=== PATIENT | female | born 2000 | race Caucasian/White ===

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

== ENCOUNTER → 2021-01-18 14:12 | Outpatient (BNVA) | payer OTHER, SELFPAY | PROVIDERS: PCP Internal Medicine; Visit Provider Nurse Practitioner | DX: Z20.822 Contact with and (suspected) exposure to COVID-19 (principal) | CPT/HCPCS: 87635 ==

== ENCOUNTER 2021-04-22 14:07 | Emergency (ER) | payer SELFPAY ==
[2021-04-22 14:17] VITALS: BP 137/86; PULSE 70; RESP 18; TEMP 36.7; O2SAT 96; BMI 33.3
--- NOTE | 2021-04-22 14:26 | W.ED.FEMALGU ---
HPI - Female Genitourinary General: Chief complaint: Urogenital-Female Stated complaint: States possible UTI, cramping Time Seen by Provider: 04/22/21 14:22 History of Present Illness: HPI Narrative: Patient is a 20-year-old female who comes to the ED with UTI symptoms. Patient says that she has had some dysuria now for about close to 2 weeks. She states she has been taking some lhbi-[id number]-[id number] cranberry tablets she reports having a little bit of blood in the urine today as well. Denies any fever, chills, nausea/vomiting, abdominal pain. Associated symptoms: Deny abdominal pain, headache(s) or nausea Review of Systems Const: Denies: fever(s), chills or fatigue Eyes: Denies: change in vision or eye discomfort ENMT: Denies: throat pain, odynophagia, nasal discharge or nasal congestion Card: Denies: chest pain, palpitations, edema, swelling of feet/ankles, dyspnea on exertion or orthopnea Resp: Denies: dyspnea, productive cough or non-productive cough GI: Denies: abdominal pain, nausea, vomiting, diarrhea, constipation or hematochezia : Reports: dysuria and hematuria; Denies: flank pain Musc: Denies: neck pain, back pain or extremity swelling Skin/Breast: Denies: rash or new lesions Neuro: Denies: headache(s), numbness in extremities or weakness in extremities PFSH ED PFSH: Social History Smoking and tobacco status: never smoked Physical Exam Const: COMMON NORMALS: no acute distress, patient oriented x3, healthy appearing and alert GENERAL APPEARANCE: cooperative and comfortable HENMT: COMMON NORMALS: normocephalic HEAD & SCALP: normocephalic MOUTH: Normal oral and palatal mucosa present THROAT: posterior oropharynx normal and uvula midline Neck/C-Spine: COMMON NORMALS: supple GENERAL: Yes normal visual inspection Resp: COMMON NORMALS: normal respiratory effort, No retractions, No use of accessory muscles and clear to auscultation bilaterally AUSCULTATION: clear to auscultation bilaterally Cardio: COMMON NORMALS: regular rate, regular rhythm, S1 normal heart sound present, S2 normal heart sound present, No gallops present (Cardio), No clicks present (Cardio), No murmurs present (Cardio) and Peripheral pulses 2+ throughout RATE: regular rate RHYTHM: regular rhythm HEART SOUNDS: S1 normal heart sound present and S2 normal heart sound present PERIPHERAL PULSES: Peripheral pulses 2+ throughout GI: COMMON NORMALS: Normal to inspection, nondistended, normoactive bowel sounds present, Soft to palpation, non-tender and no masses PALPATION: Yes Soft to palpation : COMMON NORMALS: Yes no CVA tenderness BLADDER/KIDNEY EXAM: Yes no CVA tenderness Back/Pelvis: COMMON NORMALS: no CVA tenderness Extremity: COMMON NORMALS: normal to inspection Neuro: COMMON NORMALS: patient oriented x3 and moves all extremities SENSORIUM/ORIENTATION: Yes alert Skin: GENERAL SKIN EXAM: dry skin Course Vital Signs: Vital signs: Vital Signs Temperature 98.1 F 04/22/21 14:17 Pulse Rate 79 04/22/21 15:29 Respiratory Rate 16 04/22/21 15:29 Blood Pressure 124/68 04/22/21 15:29 Pulse Oximetry 97 04/22/21 15:29 MDM - Female MDM Narrative: Medical decision making narrative: Patient is a 20-year-old female comes to the ED with UTI symptoms for about 2 weeks. She has been taking lxlh-jsm-[id number] cranberry pills but symptoms have not resolved. Patient's exam was benign and she appeared nontoxic and in no acute distress or pain. UA was positive for bacteria and hCG in the urine was negative. Patient's UA was not a strong indicator for UTI but due to patient's 2 weeks of UTI symptoms I discharged home with a prescription for Bactrim. Return to ED precautions given. She is told to follow-up with her PCP in 7 to 10 days for reevaluation. Lab Data: Attestation: I reviewed the patient's lab results. Labs: Lab Results 04/22/21 04/22/21 Range/Units 14:20 14:20 HCG, Qual Negative (Negative) Urine Color Yellow (Yellow) Urine Appearance Hazy A (CLEAR) Urine pH 7 (5-7) Ur Specific Gravit y 1.015 (1.005-1.030) Urine Protein Neg (Negative) Urine Glucose (UA) Norm (Normal) Urine Ketones Negative (Negative) Urine Blood Neg (Negative) Urine Nitrate Negative (Negative) Urine Bilirubin Neg (Negative) Urine Urobilinogen Norm (Negative) mg/dL Ur Leukocyte Roz ase Negative (Negative) Urine RBC None (0-2) /hpf Urine WBC Rare (0-5) /hpf Ur Squamous Epith Cells 0-4 H (0-5) /hpf Amorphous Sediment Not Reportable Urine Bacteria 2+ H (NONE) /hpf Discharge Plan Discharge Patient Disposition: Home Clinical Impression: UTI symptoms Condition: Stable Prescriptions: New Bactrim DS 800-160 mg tablet 1 tab PO BID 5 Days Qty: 10 RF: 0 No Action albuterol sulfate [ProAir HFA] 90 mcg/actuation HFA aerosol inhaler 2 puff INHALATION Q6H PRN (Reason: shortness of breath or wheezing) Qty: 8.5 RF: 0 Excedrin Migraine 250-250-65 mg Tablet 2 tab PO PRN RF: 0 melatonin 10 mg Tablet 10 mg PO BEDTIME PRN (Reason: Sleep) RF: 0 Discharge Orders: Discharge ED (Routine); Ordered 04/22/21 Ordered By: Jason Butcher Discharge Diet: Regular Discharge Activity: Resume usual activity Patient Instructions: Urinary Tract Infection in Women (ED) Activity Restrictions/Additional Instructions: Follow-up with medical provider as directed in 7 days for reevaluation. Take medications as prescribed. Return to the ER or your medical provider if condition worsens. Please read and understand discharge instructions. Thank you for choosing [facility] for your healthcare needs today. Please realize this is an emergency room and that we are providing you with a medical screening exam and this may not be complete and all inclusive of all the testing and or work up that you may need to determine your ailment or severity of your illness. It is very important that you follow up as instructed or that you return to the Emergency Department should you have concerns or if your condition changes or worsens in any way. Coding Level of Care Code ED Seo Engineer for Rickie Fwhesham Exam Comprehensive
[2021-04-22 14:40] LABS: HCG Qualitative Urine. Negative (Negative)
[2021-04-22 14:52] LABS: Protein Urine Neg (Negative); Specific Gravity, Urine 1.015 (1.005-1.030); Urine Appearance Hazy (CLEAR); Urine Color Yellow (Yellow); pH Urine 7 (5-7)
[2021-04-22 14:53] LABS: Add Urine Culture? No; Bacteria Urine 2+ /hpf; Bilirubin Urine Neg (Negative); Blood Urine Neg (Negative); Glucose Urine UA Norm (Normal); Ketones Urine Negative (Negative); Leukocyte Esterase Urine Negative (Negative); Nitrate Urine Negative (Negative); Squamous Epithelial Cell Urine 0-4 /hpf (0-5); Urobilinogen Urine Norm (Negative); WBC Urine RARE /hpf (0-5)
[2021-04-22 15:29] VITALS: BP 124/68; PULSE 79; RESP 16; O2SAT 97
== END 2021-04-22 15:30 | disposition home or self-care (01) ==
PROVIDERS: Emergency Provider Physician Assistant
DX: R30.0 Dysuria (principal)
CPT/HCPCS: 81001; 81025; 99282

== ENCOUNTER → 2021-12-19 10:26 | Outpatient (BNVA) | payer SELFPAY | PROVIDERS: Visit Provider Family Medicine Adult Medicine | DX: N20.0 Calculus of kidney (principal); R39.9 Unspecified symptoms and signs involving the genitourinary system; R31.9 Hematuria, unspecified | CPT/HCPCS: 81000 ==

== ENCOUNTER → 2022-06-07 15:14 | Outpatient (BNVA) | payer SELFPAY | PROVIDERS: Visit Provider Family Medicine | DX: Z20.2 Contact with and (suspected) exposure to infections with a predominantly sexual mode of transmission (principal); A74.9 Chlamydial infection, unspecified | CPT/HCPCS: 87491; 87591; 87661 ==

== ENCOUNTER → 2022-07-27 12:48 | Outpatient (BNVA) | payer SELFPAY | PROVIDERS: Visit Provider Registered Nurse Neonatal Intensive Care | DX: J02.9 Acute pharyngitis, unspecified (principal); H66.91 Otitis media, unspecified, right ear; H66.001 Acute suppurative otitis media without spontaneous rupture of ear drum, right ear | CPT/HCPCS: 87071; 87880 ==

== ENCOUNTER 2022-11-20 00:10 | Emergency (ER) | payer SELFPAY ==
[2022-11-20 00:15] VITALS: BP 133/69; PULSE 94; RESP 20; TEMP 36.8; O2SAT 98; BMI 34.9
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
--- NOTE | 2022-11-20 00:21 | XRR_ITS ---
PROCEDURE INFORMATION: Exam: XR Chest Exam date and time: 11/20/2022 12:26 AM Age: 22 years old Clinical indication: Cough and shortness of breath; Patient HX: C/O cough, congestion, and SOB. Diagnosed with bronchitis last week. TECHNIQUE: Imaging protocol: Radiologic exam of the chest. Views: 1 view. COMPARISON: CR XR thoracic spine 3V* [id number] 10/11/2017 12:20 AM FINDINGS: Lungs: There may be minimal left lung base atelectasis. No sizable or definite consolidation. Right lung clear. Pleural spaces: Unremarkable. No pleural effusion. No pneumothorax. Heart/Mediastinum: Unremarkable. No cardiomegaly. Bones/joints: Unremarkable. XR/XR chest 1V portable [id number] IMPRESSION: 1. Minimal left lung base atelectasis or minimal airspace disease. Advise correlation. 2. Otherwise negative.
[2022-11-20] MEDS: dexamethasone 10 mg/mL INJ IM (01:01)
[2022-11-20] MEDS: azithromycin 250 mg Tablet 500 MG PO (01:02)
[2022-11-20] MEDS: ipratropium-albuterol 3 mL Neb INHALATION (01:21)
[2022-11-20 01:22] VITALS: PULSE 91; RESP 16; O2SAT 97
[2022-11-20 01:25] VITALS: PULSE 90; RESP 16; O2SAT 98
[2022-11-20] MEDS: cefdinir 300 MG CAPSULE PO (01:26)
[2022-11-20 01:28] VITALS: PULSE 90; RESP 16; O2SAT 98
== END 2022-11-20 01:26 | disposition home or self-care (01) ==
PROVIDERS: Emergency Provider Nurse Practitioner Family
DX: J18.9 Pneumonia, unspecified organism (principal)
CPT/HCPCS: 71045; 94640; 96372; 99284; J1100; Q0144

== ENCOUNTER 2022-12-17 19:55 | Emergency (ER) | payer OTHER, SELFPAY ==
[2022-12-17 19:59] VITALS: BP 146/88; PULSE 102; RESP 16; TEMP 36.2; O2SAT 93
--- NOTE | 2022-12-17 20:00 | XRR_ITS ---
PROCEDURE INFORMATION: Exam: XR Chest Exam date and time: 12/17/2022 8:11 PM Age: 22 years old Clinical indication: Cough and shortness of breath; Additional info: SOB TECHNIQUE: Imaging protocol: Radiologic exam of the chest. Views: 1 view. COMPARISON: CR (CHEST, ) 11/20/2022 12:26 AM FINDINGS: Lungs: Unremarkable. No consolidation. Pleural spaces: Unremarkable. No pleural effusion. No pneumothorax. Heart/Mediastinum: Unremarkable. No cardiomegaly. Bones/joints: Unremarkable. XR/XR chest 1V portable [id number] IMPRESSION: No acute findings.
[2022-12-17] MEDS: ipratropium 0.5 mg/2.5 mL Neb 0.25 MG INHALATION ×2 (20:51→22:40)
[2022-12-17] MEDS: albuterol 2.5 mg/3 mL Neb INHALATION ×2 (20:51→22:39)
[2022-12-17 20:56] VITALS: PULSE 99; RESP 20; O2SAT 99
[2022-12-17 21:02] LABS: SARS Covid-2 Antigen negative (Negative)
[2022-12-17 22:41] VITALS: PULSE 99; RESP 20; O2SAT 99
[2022-12-17] MEDS: amoxicillin-clav 875-125 mg Tablet 1 TAB PO (23:29)
[2022-12-18 00:08] VITALS: PULSE 103; RESP 18; O2SAT 92
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
== END 2022-12-17 23:47 | disposition home or self-care (01) ==
PROVIDERS: Emergency Provider Physician Assistant
DX: J98.01 Acute bronchospasm (principal); B34.9 Viral infection, unspecified; Z20.822 Contact with and (suspected) exposure to COVID-19
CPT/HCPCS: 71045; 87426; 94640; 96374; 99284; J2930; J7613; J7644

== ENCOUNTER → 2022-12-31 17:10 | Outpatient (BNVA) | payer OTHER, SELFPAY | PROVIDERS: Visit Provider Family Medicine | DX: F31.30 Bipolar disorder, current episode depressed, mild or moderate severity, unspecified (principal); Z30.011 Encounter for initial prescription of contraceptive pills | CPT/HCPCS: 81025 ==

== ENCOUNTER 2023-01-13 09:52 | Emergency (ER) | payer OTHER, SELFPAY ==
[2023-01-13 09:56] VITALS: BP 133/93; PULSE 114; RESP 16; TEMP 36.9; O2SAT 94
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
[2023-01-13] MEDS: ketorolac 60 mg/2 mL INJ IM (12:37)
[2023-01-13] MEDS: sulfamethoxazole-trimeth DS 160-800 mg Tablet 1 TAB PO (12:37)
[2023-01-13 12:52] VITALS: BP 133/93; PULSE 114; RESP 16; TEMP 36.9; O2SAT 94
== END 2023-01-13 12:54 | disposition home or self-care (01) ==
PROVIDERS: Emergency Provider Nurse Practitioner
DX: L03.116 Cellulitis of left lower limb (principal); L02.416 Cutaneous abscess of left lower limb; F17.290 Nicotine dependence, other tobacco product, uncomplicated
CPT/HCPCS: 96372; 99284; J1885

== ENCOUNTER → 2023-01-31 09:19 | Outpatient (BNVA) | payer OTHER, SELFPAY | PROVIDERS: PCP Family Medicine; Visit Provider Family Medicine | DX: R06.2 Wheezing (principal); Z13.6 Encounter for screening for cardiovascular disorders | CPT/HCPCS: 80053; 80061; 84443; 85025 ==

== ENCOUNTER → 2023-03-02 13:37 | Outpatient (BNVA) | payer OTHER, SELFPAY | PROVIDERS: PCP Family Medicine; Visit Provider Nurse Practitioner Family | DX: R39.9 Unspecified symptoms and signs involving the genitourinary system (principal); B37.31 Acute candidiasis of vulva and vagina; N30.01 Acute cystitis with hematuria | CPT/HCPCS: 81000 ==

== ENCOUNTER → 2024-04-29 09:42 | Outpatient (BNVA) | payer OTHER, SELFPAY | PROVIDERS: PCP Family Medicine; Visit Provider Nurse Practitioner | DX: R09.81 Nasal congestion (principal); J01.41 Acute recurrent pansinusitis | CPT/HCPCS: 87400 ==

== ENCOUNTER 2024-05-22 20:20 | Emergency (ER) | payer OTHER, SELFPAY ==
[2024-05-22 20:36] VITALS: BP 116/83; PULSE 118; RESP 18; TEMP 38.5; O2SAT 96
--- NOTE | 2024-05-22 20:40 | ECG_ITS ---
[facility] Test Date: 2024-05-22 Pat Name: Radha Lung Department: Room: Gender: Female Senior Bookkeeper: : 2000 Requested By: Lurdes Abel Order Number: [id number] Brandon MD: Lisa Vital M.D. Measurements Intervals [place] Rate: 118 P: 74 MT: 138 QRS: 90 QRSD: 86 T: 16 QT: 340 QTc: 477 Interpretive Statements SINUS TACHYCARDIA LOW QRS VOLTAGE IN PRECORDIAL LEADS [QRS DEFLECTION < 1.0 mV IN CHEST LEADS] NONSPECIFIC T-WAVE ABNORMALITY ABNORMAL RHYTHM ECG No previous ECG available for comparison Electronically Signed On 05-22-2024 20:48:18 CDT by Lisa Vital M.D. [id number]
--- NOTE | 2024-05-22 20:47 | XRR_ITS ---
PROCEDURE INFORMATION: Exam: XR Chest Exam date and time: 05/22/2024 9:03 PM Age: 23 years old Clinical indication: Shortness of breath and other: Dizzy; Additional info: Fever TECHNIQUE: Imaging protocol: Radiologic exam of the chest. Views: 1 view. COMPARISON: CR XR chest 1V portable [id number] 12/17/2022 8:11 PM FINDINGS: Lungs: Low lung volumes. Patchy left basilar atelectasis or other infiltrates. Pleural spaces: Suspect small pleural effusions. Heart/Mediastinum: No cardiomegaly. Bones/joints: No acute fracture. XR/XR chest 1V portable [id number] IMPRESSION: Low lung volumes. Patchy left basilar atelectasis or other infiltrates. Suspect small pleural effusions.
[2024-05-22 21:09] VITALS: BP 112/68; PULSE 115; RESP 21; O2SAT 92
[2024-05-22] MEDS: acetaminophen 325 mg Tablet 650 MG PO (21:16)
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
[2024-05-22 21:38] LABS: Add Urine Microscopic? YES; Bacteria Urine 1+ /hpf; Bilirubin Urine Neg (Negative); Blood Urine 2+ (Negative); Glucose Urine UA Norm (Normal); Ketones Urine Negative (Negative); Leukocyte Esterase Urine Negative (Negative); Nitrate Urine Negative (Negative); Protein Urine Neg (Negative); Urine Appearance Clear (CLEAR); Urine Color Yellow (Yellow); Urobilinogen Urine Neg (Negative); WBC Urine 0-4 /hpf (0-5); pH Urine 5 (5-7)
[2024-05-22 21:43] LABS: Basophils # 0.1 10^3/uL (0.0-0.1); Basophils % 0.3 %; Eosinophils % 0.1 %; Lymphocytes # 1.2 10^3/uL (0.8-4.8); Lymphocytes % 6.3 %; Mean Corpuscular HGB Conc 32.9 g/dL (30-55); Mean Corpuscular Hemoglobin 28.2 pg (27-33); Mean Corpuscular Volume 85.6 fl (85-98); Mean Platelet Volume 9.8 fL (7.4-10.4); Monocytes # 0.8 10^3/uL (0.2-0.9); Monocytes % 4.3 %; Neutrophils # 16.93 10^3/uL (1.8-7.7); Neutrophils % 88.5 %; Nucleated Red Blood Cells % 0 %; Platelet Count 351 10^3/cmm (157-399); Red Blood Count 4.79 10^6/uL (3.85-5.65); Red Cell Distribution Width 13.4 % (12.1-15.1); White Blood Count 19.12 10^3/uL (3.29-11.43)
[2024-05-22 22:00] LABS: Alanine Aminotransferase 12 U/L (0-33); Alkaline Phosphatase 73 U/L (35-105); Anion Gap 15.8 (5-19); Aspartate Amino Transferase 12 U/L (0-32); Blood Urea Nitrogen 10 mg/dL (6-20); Calcium 8.7 mg/dL (8.5-10.5); Carbon Dioxide 22 mmol/L (22-29); Chloride 103 mmol/L (98-107); Globulin 2.9 g/dL (1.3-4.6); Glomerular Filtration Rate 103.7 mL/min (90-130); Glucose 112 mg/dL (65-115); Lipase 16 U/L (13-60); Osmolality Calculated 284 mOsm/kg (285-295); Potassium 3.8 mmol/L (3.5-5.1); Sodium 137 mmol/L (136-145); Total Bilirubin 0.3 mg/dL (0.15-1.2); Total Protein 6.9 g/dL (6.6-8.7)
[2024-05-22] MEDS: sodium chloride 0.9% 1,000 ML 999 ML IV ×2 (22:01→22:19)
[2024-05-22 22:08] LABS: HCG, Serum Qual Negative (Negative)
[2024-05-22 22:15] VITALS: PULSE 105; RESP 19; O2SAT 96
[2024-05-22 22:48] LABS: Creatine Phosphokinase 120 U/L (26-192)
[2024-05-22 23:41] VITALS: BP 112/68; PULSE 84; RESP 16; O2SAT 96
== END 2024-05-22 23:42 | disposition home or self-care (01) ==
PROVIDERS: Emergency Medicine; Emergency Provider Physician Assistant
DX: E86.0 Dehydration (principal); F17.290 Nicotine dependence, other tobacco product, uncomplicated
CPT/HCPCS: 36415; 71045; 80053; 81001; 82550; 83690; 84703; 85025; 93005; 96360; 96361; 99285; J7030